=== PATIENT | male | born 2005 | race Caucasian/White ===

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

== ENCOUNTER 2025-09-03 14:30 | Emergency (ER) | payer OTHER, SELFPAY ==
--- NOTE | ~2025-09-03 | XR_ITS ---
EXAMINATION: XR ankle LT min 3V, 09/03/2025 15:35 PUBLIC ADDRESS SYSTEM MECHANIC HISTORY: injury COMPARISON: No comparisons available. Findings: No acute fracture or malalignment. No significant degenerative changes. Soft tissues unremarkable. Impression: No acute fracture or malalignment. Reviewed, dictated and finalized at location P. IC ADDRESS SYSTEM MECHANIC Impression: No acute fracture or malalignment.
--- NOTE | ~2025-09-03 | XR_ITS ---
EXAMINATION: XR foot LT min 3V, 09/03/2025 15:07 SUBSCRIPTION CLERK HISTORY: injury COMPARISON: No comparisons available. Findings: No acute fracture or malalignment. No significant degenerative changes. Soft tissues unremarkable. Impression: No acute fracture or malalignment. Reviewed, dictated and finalized at location P. CRIPTION CLERK Impression: No acute fracture or malalignment.
[2025-09-03 14:43] VITALS: BP 151/77; PULSE 87; RESP 18; TEMP 37.1; O2SAT 99
--- NOTE | 2025-09-03 15:05 | ED.LOWEXIN ---
HPI - Extremity Injury (Lower) General Chief Complaint: Extremity Injury, Lower Stated Complaint: L Foot Time Seen by Provider: 09/03/25 15:28 Source: patient and RN notes reviewed Mode of arrival: ambulatory Limitations: no limitations History of Present Illness HPI Narrative: 20-year-old male presents with concern for left foot and ankle pain. He reports today he has skipped 2 stairs and fell landing on a hardwood floor. He reports he rolled his ankle. He denies open skin. He reports pain at rest and pain with weight-bearing MD complaint: ankle injury Related Data Home Medications ?Medication ?Instructions ?Recorded ?Confirmed ?Last Taken ?Type No Home Medications 09/03/25 09/03/25 Unknown History Allergies Allergy/AdvReac Type Severity Reaction Status Date / Time No Known Allergies Allergy Verified 09/03/25 14:54 Review of Systems Review of Systems: CONSTITUTIONAL: Denies malaise, chills, sweats, or fever. SKIN: Denies rash or itching, open skin, laceration, abrasion, redness, warmth MUSCULOSKELETAL: Reports left ankle and foot pain and swelling NEUROLOGIC: Denies numbness, weakness All systems reviewed & are unremarkable except as noted in HPI and below PMFSH Comments At time of signature, agree with nursing past medical, surgical, social and family history. There is no relevant family history pertinent to the presenting complaint Exam Narrative: GENERAL: Well-appearing, well-nourished, and in no acute distress. HEAD: Normocephalic, atraumatic. EYES: PERRLA, conjunctivae clear NECK: Supple. CHEST: Speaks in full sentences. No respiratory distress. HEART: Regular rate and rhythm. Normal and equal peripheral pulses. EXTREMITIES: Left ankle, foot, digits have grossly normal strength and sensation, grossly normal range of motion. Moderate lateral ankle edema without erythema or ecchymosis. 5/5 strength with ankle in digit flexion and extension. Normal sensation with sensitivity to light touch and pain. Lateral ankle tenderness. No open wounds, no skin tenting, no devitalized tissue or atrophy, no trophic changes, no obvious deformity, alignment normal, nearby joints and structures intact. Distal pulses palpable and equal bilaterally, skin warm, dry, pink. Capillary refill less than 3 seconds. SKIN: Warm, dry, no rash. NEURO: Alert and oriented x3. PSYCH: Normal mood and affect Course Course Emergency Course: Patient is aware of diagnosis, understands and agrees to treatment plan. Anticipatory guidance given. Patient agrees to follow-up as directed and is aware of reasons to seek care at the emergency department. Portions of this record may have been created with voice recognition software Level of Care: Express Care Visit Vital Signs Vital signs: Vital Signs Temperature 98.8 F 09/03/25 14:43 Pulse Rate 87 09/03/25 14:43 Respiratory Rate 18 09/03/25 14:43 Blood Pressure 151/77 H 09/03/25 14:43 Pulse Oximetry 99 09/03/25 14:43 Oxygen Delivery Room Air 09/03/25 14:43 Temperature 98.8 F 09/03/25 14:43 Pulse Rate 87 09/03/25 14:43 Respiratory Rate 18 09/03/25 14:43 Blood Pressure 151/77 H 09/03/25 14:43 Pulse Oximetry 99 09/03/25 14:43 Oxygen Delivery Room Air 09/03/25 14:43 Reviewed. MDM Differential Diagnosis Differential Diagnosis: Patients injury and/or pain is consistent with musculoskeletal etiology. No signs of neurological or vascular compromise on exam. Compartments and tissues are soft without signs of compartment syndrome. Pain is felt appropriate for further evaluation on an outpatient basis. Imaging Data My impression: Images reviewed, interpreted by radiologist, agree, see report. Radiologist's impression: EXAMINATION: XR foot LT min 3V, 09/03/2025 15:07 DIRECTOR OF OPTIMIZATION HISTORY: injury COMPARISON: No comparisons available. Findings: No acute fracture or malalignment. No significant degenerative changes. Soft tissues unremarkable. Impression: No acute fracture or malalignment. EXAMINATION: XR ankle LT min 3V, 09/03/2025 15:35 DIRECTOR OF OPTIMIZATION HISTORY: injury COMPARISON: No comparisons available. Findings: No acute fracture or malalignment. No significant degenerative changes. Soft tissues unremarkable. Impression: No acute fracture or malalignment. Critical Care Time Critical Care Time Critical Care Time: No Discharge Plan Discharge Clinical Impression: Ankle sprain and strain Patient Disposition: Home Condition: Stable Instructions: Ankle Sprain (ED) Additional Instructions: Your x-rays look normal Avoid activities that cause pain until the pain subsides. Ice to the area 20-30 minutes 4-6 times a day Elevate above heart Elastic wrap as directed for comfort for the next 5-7 days Crutches as directed if needed Tylenol for lesser pain Ibuprofen regularly for the next 2-3 days for the inflammation Follow up with your primary care provider if the condition is not improving within 1 week. If the condition worsens with numbness, tingling, decrease sensation with weakness seek treatment in the emergency room immediately. Patient Language: Ukrainian Prescriptions: No Action No Home Medications Follow-up/Referrals: UNKNOWN,DOCTOR [Primary Care Provider] Time of Disposition: 15:55
--- OUTSIDE RECORDS SUMMARY | 2025-09-03 15:32 | XMS_ITS | Clinical Summary ---
Author Organization [facility] [employer] Address [address] [place] [address] Care Team Providers Care Telephone Switchboard Operator Name Role Phone Yajaira Gannon MD Primary Care Provider [phone] Source Comments [facility] [employer]non-owned Affiliates and Associated Physician Practices is amultiple site organization consisting of ambulatory clinics and hospital sitesin [place], [place], [place] and [place]. This disclosure is being madepursuant to the Care Everywhere program and may not contain all information available regarding this patient. Last updated 06/24/18.[employer] Allergies No known active allergies Medications * Be aware that medications may not be up to date on this document. Alwaysverify current medications with the patient. Wal-phed 12 Hour 120 MG tablet Take 1 (one) tablet by mouth every 12 hours as needed 2 Active famotidine (Pepcid) 20 MG tablet Take 1 (one) tablet by mouth once daily 30 tablet 2 2 Active Additional Information Patient not taking.Reported on 03/19/2023 omeprazole (PriLOSEC) 20 MG capsule Take 1 (one) capsule by mouth once daily 30 capsule 3 Active polyethylene glycol 3350 (Miralax) 17 GM/SCOOP powder Take 17 (seventeen) g by mouth once daily 255 g 3 Active bisacodyl EC (Dulcolax) 5 MG tablet Take 1 (one) tablet by mouth nightly as needed for Constipation 10 tablet 3 Active Active Problems No known active problems Resolved Problems Problem Noted Date Diagnosed Date Resolved Date Acute right ankle pain 06/03/201705/21 Immunizations Immunization Administration Dates Next Due DTAP/HEP B/IPV 03/03/2006,2005,2005 DTaP VACCINE IM (6wk-6yrs) 05/07/2011,06/02/2007 HEP A PEDS 2 DOSE 06/02/2007,09/01/2006 HEP B VACCINE, PED/ADOL 2005,2005 HIB-PRP-OMP 3 DOSE 06/02/2007,2005, 006 Human Papilloma Virus Nineva lent Vaccine 08/08/2020,08/07/2019 INFLUENZA VACCINE 07/29/2018, 7,08/19/2016,08/09,08/02/2014,10/16/2013,05/25/2012 ,08/13/2009,07/25/2008 INFLUENZA VACCINE, CELL CULT URE, QUADR. (FLUCELVAX QUADRIVALENT; 6MO+) (CCIIV4) 10/08/2021 INFLUENZA VACCINE, QUADR. (F LUZONE; FLULAVAL; FLUARIX; AFLURIA QUADRIVALENT; 6MO+), 0.5 ML (IIV4) 08/05/2022,08/08/2020,08/07/2019 MENINGOCOCAL MENINGITIS 06/21/2017 MMR 05/07/2011 MMRV 09/01/2006 Meningococcal ACWY (Menquadfi) Vac IM 05/21/2022 PNEUMOCOCCAL PCV7 CONJ, PEDS 09/01/2006, 03/03/2006,2005,10/30 POLIO IPV 05/07/2011 TDAP (7yrs+) 06/21/2017 VARICELLA 05/07/2011 Family History Medical History Relation Name Comments High Cholesterol Maternal Grandmother Hypertension Maternal Grandmother Cancer - Other Paternal Grandmother Relation Name Status Comments Maternal Grandmother Paternal Grandmother Social History Tobacco Use Types Packs/Day Years Used Date Smoking Tobacco: Never Smokeless Tobacco: Never PHQ-2 Answer Date Recorded PHQ2 TOTAL SCORE 0 03/19/2023 Sex and Gender Information Value Date Recorded Sex Assigned at Not on file Legal Sex Male 12:29 PM CDT Gender Identity Not on file Sexual Orientation Not on file Last Filed Vital Signs Vital Sign Reading Time Taken Comments Blood Pressure 113/70 05/21/2022 2:44 PM CDT Pulse 85 05/21/2022 2:44 PM CDT Temperature 36.1 C (96.9 F) 03/19/2023 4:09 PM CDT Respiratory Rate - - Oxygen Saturation - - Inhaled Oxygen Concentration - - Weight 63.3 kg (139 lb 9.6 oz) 03/19/2023 4:09 P M CDT Height 176.5 cm (5' 9.5) 05/21/2022 2:44 PM CDT Body Mass Index - - Plan of Treatment Health Maintenance Due Date Last Done Comments HIV SCREENING 2020 MENINGOCOCCAL (Group B) VACC INE SHARED DECISION-MAKING (1 of 2 - Standard) 2021 HEPATITIS C SCREENING 08/26/2023 DEPRESSION SCREENING 10/04/2024 03/19/2023, 05/21/20 22 COVID-19 VACCINE (2024-11 6 season) 2025 10/08/2021, 03/18/2021, 02/25/2021 INFLUENZA VACCINE (#1) 2025 , 10/08/2021, 08/08/2020, Additional history exists DTAP/TDAP/TD VACCINES (7 - T d or Tdap) 06/21/2027 06/21/2017, 05/07/2011, 06/02/2007, Additional history exists ZOSTER VACCINE (1 of 2) 2055 HEPATITIS B VACCINE Completed 03/03/2006, 2005, 2005, Additional history exists PNEUMOCOCCAL VACCINE Completed 09/01/2006, 03/03/2006, 2005, Additional history exists HIB VACCINE Completed 06/02/2007, 12/03, 2005 HPV VACCINE Completed 08/08/2020, 08/07/2019 MENINGOCOCCAL GROUPS A/C/Y/W VACCINE Completed 05/21/2022, 06/21/2017 Goals Goal Patient Goal Type Associated Problems Recent Progress Patient-Stated? Author Use safety retraint in car Lifestyle On track( 022 4:22 PM CDT) No Nica Stoll RN Insurance [facility] Care Teams Telephone Switchboard Operator Relationship Specialty Start Date End Date Yajaira Gannon MD PCP - General Pediatrics 08/07/19
== END 2025-09-03 15:58 | disposition home or self-care (01) ==
PROVIDERS: Emergency Provider Nurse Practitioner
DX: S93.402A Sprain of unspecified ligament of left ankle, initial encounter (principal); S96.912A Strain of unspecified muscle and tendon at ankle and foot level, left foot, initial encounter; W10.9XXA Fall (on) (from) unspecified stairs and steps, initial encounter
CPT/HCPCS: 73610; 73630; 99213; G0463